=== PATIENT | female | born 1975 | race Caucasian/White ===

== ENCOUNTER 2016-06-15 09:48 | Emergency (ER) | payer OTHER ==
[2016-06-15 09:55] VITALS: BP 110/80; PULSE 93; TEMP 97.9; BMI 37.7
--- NOTE | 2016-06-15 11:35 | PDOC ---
History of Present Illness - General Chief Complaint: Pain Stated Complaint: LT ANKLE PAIN Time Seen by Provider: 06/15/16 10:44 History Source: Patient Exam Limitations: No Limitations - History of Present Illness Initial Comments: 06/15/16 11:31 40 yr female with c/o twisted left ankle and foot 2 days ago on uneven pavement. Pt has been apply ice every 2hrs. Pt took aleve for pain . no medical history or allergies. Occurred: reports: last week Severity: reports: mild Past History - Past Medical History Allergies/Adverse Reactions: Allergies Allergy/AdvReac Type Severity Reaction Status Date / Time Penicillins Allergy Severe Difficulty Verified 06/15/16 09:52 Breathing Home Medications: Ambulatory Orders Lisinopril [Prinivil] 25 mg PO DAILY #0 tablet 06/20/13 Metformin HCl [Glucophage -] 500 mg PO BID 30 Days 10/05/14 Sulfamethoxazole/Trimethoprim [Bactrim Ds Tablet] 1 each PO BID #13 tablet 09/10 Diabetes: Yes (NIDDM) HTN: Yes Hypercholesterolemia: Yes Suicide Attempt (Hx): No - Psycho/Social/Smoking Cessation Hx Anxiety: No Suicidal Ideation: No Smoking Status: No Smoking History: Never smoked Have you smoked in the past 12 months: No Number of Cigarettes Smoked Daily: 0 Information on smoking cessation initiated: No Hx Alcohol Use: No Drug/Substance Use Hx: No Substance Use Type: None *Physical Exam - Vital Signs Last Vital Signs Temp Pulse Resp BP Pulse Ox 97.9 F 93 H 18 110/80 100 06/15/16 09:53 06/15/16 09:53 06/15/16 09:53 06/15/16 09:53 06/15/16 09:53 - Physical Exam General Appearance: Yes: Nourished, Appropriately Dressed HEENT: positive: EOMI, ANIYAH, Normal ENT Inspection, TMs Normal, Pharynx Normal Neck: negative: Tender Respiratory/Chest: positive: Lungs Clear, Normal Breath Sounds Cardiovascular: positive: Regular Rhythm, Regular Rate Gastrointestinal/Abdominal: positive: Normal Bowel Sounds, Soft Lymphatic: negative: Adenopathy Musculoskeletal: positive: Normal Inspection Extremity: positive: Normal Capillary Refill, Normal Inspection, Normal Range of Motion, Swelling (left lateral foot ) Integumentary: positive: Normal Color, Dry, Warm Neurologic: positive: Fully Oriented, Alert, Normal Mood/Affect, Normal Response , Motor Strength 5/5 Procedures - Splinting Pre-Made Type: aircast ED Treatment Course - ADDITIONAL ORDERS Additional order review: Laboratory Results 06/15/16 10:00 Urine HCG, Qual Negative - RADIOLOGY Radiology Studies Ordered: Category Date Time Status ANKLE & FOOT-LEFT* [RAD] Stat Radiology 06/15/16 10:46 Completed Medical Decision Making - Medical Decision Making 06/15/16 11:33 cc: left ankle foot twisted will xray to r/o fracture nv intact strong pedal pulse 06/15/16 11:49 AIR CAST PLACED crutches given pt understands the dc plan all questions asked and answered before discharge *DC/Admit/Observation/Transfer Diagnosis at time of Disposition: Ankle sprain Qualifiers: Encounter type: initial encounter Involved ligament of ankle: unspecified ligament Laterality: left Qualified Code(s): S93.402A - Sprain of unspecified ligament of left ankle, initial encounter - Discharge Dispostion Disposition: HOME Condition at time of disposition: Good - Referrals Referrals: Juan Carlos Elaine MD [Primary Care Provider] - Jonathon Dwyer MD [Staff Physician] - - Patient Instructions Additional Instructions: use the air cast splint while awake for 7 days remove to bathe and sleep follow with the orthopedist if symptoms worsen or do not improve take Aleve or Advil as directed for pain no strenuous activity until symptoms improve
== END 2016-06-15 11:41 | disposition home or self-care (01) ==
LOC: JERFT 09:48
PROC: 2W3TX1Z Immobilization of Left Foot using Splint (ICD-10-PCS; principal; 2016-06-15)
DX: S93.402A Sprain of unspecified ligament of left ankle, initial encounter (principal); X58.XXXA Exposure to other specified factors, initial encounter; Y93.89 Activity, other specified; Y92.410 Unspecified street and highway as the place of occurrence of the external cause; Z79.84 Long term (current) use of oral hypoglycemic drugs; E11.9 Type 2 diabetes mellitus without complications; I10 Essential (primary) hypertension; E78.00 Pure hypercholesterolemia, unspecified
CPT/HCPCS: 29515; 73610-TC-LT; 73630-TC-LT; 84703; 99281-25

== ENCOUNTER 2017-08-19 22:02 | Inpatient (IN) | payer OTHER ==
--- NOTE | 2017-08-19 22:29 | PDOC ---
History of Present Illness - General Chief Complaint: Pain, Acute Stated Complaint: PAIN Time Seen by Provider: 08/19/17 22:21 - History of Present Illness Initial Comments: 08/19/17 22:35 The patient is a 41 year old female with a history of HTN, HLD, DM who presents for evaluation of pain with urination and abdominal pain. The patient reports a 4 day history of intermittent sharp suprapubic abdominal pain worse with urination and associated with orange colored urine. The patient reports persistent nausea, and multiple episodes of non-bilious, non-bloody vomiting prompting her presentation to the ED for further evaluation. She otherwise denies fevers, chills, SOB, chest pain, vaginal bleeding, vaginal discharge, or changes with bowel movements. Past History - Past Medical History Allergies/Adverse Reactions: Allergies Allergy/AdvReac Type Severity Reaction Status Date / Time Penicillins Allergy Severe Difficulty Verified 08/19/17 22:24 Breathing Home Medications: Ambulatory Orders Linagliptin/Metformin HCl [Jentadueto 2.5 mg-1000 mg Tab] 1 each PO DAILY Diabetes: Yes (NIDDM) HTN: Yes Hypercholesterolemia: Yes - Suicide/Smoking/Psychosocial Hx Smoking Status: No Smoking History: Never smoked Have you smoked in the past 12 months: No Number of Cigarettes Smoked Daily: 0 Information on smoking cessation initiated: No Hx Alcohol Use: No Drug/Substance Use Hx: No Substance Use Type: None Review of Systems - Review of Systems Comments:: 08/19/17 22:38 Constitutional: No fevers, chills, fatigue, malaise HEENT: No Rhinorrhea, nasal congestion, visual changes Cardiovascular: No chest pain, syncope, palpitations, lightheadedness Respiratory: No Cough, SOB, Hemoptysis, Gastrointestinal: Suprapubic abdominal pain, nausea, vomiting. No Constipation , Diarrhea, Melena Genitourinary: Dysuria, Hesitancy, Hematuria. No Frequency, Urgency, Flank pain Musculoskeletal: No Myalgia, arthralgia Skin: No rashes, itching, bruising, pallor Neurologic: No Headache, Dizziness, Numbness, Weakness, or Tingling Psychiatric: No Hallucinations. No SI or HI *Physical Exam - Vital Signs Last Vital Signs Temp Pulse Resp BP Pulse Ox 98.3 F 102 H 18 127/80 97 08/19/17 22:25 08/19/17 22:25 08/19/17 22:25 08/19/17 22:25 08/19/17 22:25 - Physical Exam Comments: 08/19/17 22:45 General Appearance: Nourished. No Apparent Distress HEENT: EOMI, ANIYAH. No Pharyngeal Erythema, Tonsillar Exudate, Tonsillar Erythema Neck: No Cervical Lymphadenopathy Respiratory/Chest: Lungs Clear, Normal Breath Sounds. No Crackles, Rales, Rhonchi, Wheezing Cardiovascular: Regular Rhythm, Regular Rate. No Murmur, Gallops, Rubs Gastrointestinal/Abdominal: Normal Bowel Sounds, Soft. Suprapubic Tenderness to Palpation on Exam. No Guarding, Rebound, Musculoskeletal: No CVA Tenderness Extremity: Normal Capillary Refill Integumentary: Normal Color, Dry, Warm Neurologic: Fully Oriented, Alert, Normal Mood/Affect, Normal Response, ED Treatment Course - LABORATORY CBC & Chemistry Diagram: 08/19/17 23:10 08/19/17 23:10 Medical Decision Making - Medical Decision Making 08/19/17 22:47 The patient is a 41 year old female with a history of HTN, HLD, DM who presents for evaluation of pain with urination and abdominal pain. Differential includes but is not limited to: UTI, Pyelonephritis, Gastroenteritis, Infectious , Metabolic Derangement. Given the patient's history and physical exam, we will obtain a cbc, cmp, ua, urine preg, urine culture to evaluate for possible etiologies. We will treat with iv fluids, zofran in the meantime and continue to monitor and reassess. 08/20/17 00:09 CBC demonstrates an elevated wbc to 12.4. CMP demonstrates elevated bilirubin to 3.2. UA demonstrates positive leuk esterase and wbc in the urine. The patient continues to have pain on exam. We will obtain a abdomen/pelvis CT to evaluate further for possible etiologies. 08/20/17 04:48 CT abdomen/pelvis demonstrates an acute appendicitis as preliminarily read by our coater carbon paper radiologist. We discussed the case with the patient's primary care provider Dr. Elaine who requested admission to the hospitalist. We will start the patient on levoquin in the meantime. The patient continues to remain clinically stable on exam. 08/20/17 06:06 We discussed the case with Dr. Morales who is aware of the case and has the patient scheduled for the OR. *DC/Admit/Observation/Transfer Diagnosis at time of Disposition: Appendicitis Qualifiers: Appendicitis type: acute appendicitis Acute appendicitis type: unspecified acute appendicitis type Qualified Code(s): K35.80 - Unspecified acute appendicitis - Discharge Dispostion Condition at time of disposition: Stable Decision to Admit order: Yes - Referrals Referrals: Juan Carlos Elaine MD [Primary Care Provider] - - Patient Instructions - Post Discharge Activity
[2017-08-19] MEDS ORDERED: ONDANSETRON 4 MG/2 ML VIAL IVPUSH ONE (22:33)
[2017-08-19] MEDS ORDERED: SODIUM CHLORIDE 1,000 ML IV STA (22:33)
[2017-08-19] MEDS ORDERED: ONDANSETRON 4 MG/2 ML VIAL ONE (22:41)
--- NOTE | 2017-08-19 23:11 | PDOC ---
Attending Attestation - Medical Decision Making 08/20/17 3:15am Call placed to Dr. Elaine's answering service, patient's PCP, awaiting call back. 3:47am Second call placed to Dr. Elaine answering service, patient's PCP, awaiting call back. 4:43am Third call placed to Dr. Elaine answering service, patient's PCP, case discussed with resident. <Brian Dinero - Last Filed: 08/20/17 04:43> - Resident Resident Name: JuanaQuintin - ED Attending Attestation I have performed the following: I have examined & evaluated the patient, The case was reviewed & discussed with the resident, I agree w/resident's findings & plan - HPI HPI: 08/20/17 00:30 Pt comes with lower abd pain and vomiting x 3 to 4 days. Pt has no fever and no chills. States that she has lost her appetite the last few days and she has been drinking water and broth. Pt has a hx of c-sections, but retaines her appendix. Pt also states that she went thru early menopause 10 yrs ago, and she may have cysts follicles on her ovaries, as she has a family hx of ovarian cysts. Pt ahs exqusite rebound and guarding in the lower abd. She has no flank pain and she complains of slight dysuria. - Physicial Exam PE: 08/20/17 00:32 Agree with resident exam. See my comments above. - Medical Decision Making 08/20/17 00:32 Labs normal, except for elevated WBC. Pt will require CT imaging of colon and appy as well as abd wall to r/o femoral hernia. Pt will also get a sono of her pelvis to r/o ovarian cysts. 08/20/17 03:43 Pt has an appendicits and will be admitted to [facility]D [facility] and gen surg consult will be requested. 08/20/17 06:44 Pt's PMD is out of town and she will be admitted to hospitalist <Eusebia Baltazar - Last Filed: 08/20/17 06:53> Attestations - Attestations 08/20/17 03:49 Documentation prepared by Brian Dinero, acting as medical manager for Eusebia Baltazar MD. <Brian Dinero - Last Filed: 08/20/17 04:43>
[2017-08-19 23:18] LABS: BASO % 0.4 % (0-2.0); EOS % 1.7 % (0-4.5); HEMATOCRIT 36.2 % (32.4-45.2); HEMOGLOBIN 11.9 GM/dL (10.7-15.3); LYMPH % 24.8 % (8-40); MCH 25.4 pg (25.7-33.7); MCHC 32.7 g/dl (32.0-36.0); MEAN CELL VOLUME 77.6 fl (80-96); MEAN PLT VOLUME 8.6 fl (7.5-11.1); MONO % 4.4 % (3.8-10.2); NEUT % 68.7 % (42.8-82.8); PLATELET COUNT 346 K/MM3 (134-434); RBC 4.67 M/mm3 (3.60-5.2); RDW 13.2 % (11.6-15.6); WHITE BLOOD COUNT 12.6 K/mm3 (4.0-10.0)
[2017-08-19 23:40] LABS: URINE APPEARANCE CLEAR; URINE BILIRUBIN NEGATIVE (<2.0 mg/dL); URINE COLOR AMBER; URINE GLUCOSE (UA) 3+ (NEGATIVE); URINE KETONE NEGATIVE (NEGATIVE); URINE NITRITE NEGATIVE (NEGATIVE); URINE UROBILINOGEN 4.0 E.U/dl mg/dL (0.2-1.0)
[2017-08-19 23:42] LABS: URINE LEUK ESTERASE 1+ (NEGATIVE); URINE PROTEIN 2+ (NEGATIVE)
[2017-08-19 23:44] LABS: EPI CELLS RARE /HPF (FEW); URINE BACTERIA RARE /hpf (NONE SEEN); URINE MUCUS RARE
[2017-08-19 23:54] LABS: ALBUMIN 3.6 g/dl (3.4-5.0); ANION GAP 10 (8-16); BLOOD UREA NITROGEN 16 mg/dL (7-18); CALCIUM 9.1 mg/dL (8.5-10.1); CHLORIDE 98 mmol/L (98-107); CO2 29 mmol/L (21-32); GLUCOSE,RANDOM 250 mg/dL (74-106); POTASSIUM 3.7 mmol/L (3.5-5.1); SODIUM 137 mmol/L (136-145)
[2017-08-19 23:56] LABS: CREATININE 0.7 mg/dL (0.55-1.02); SGOT/AST 32 U/L (15-37); SGPT/ALT 29 U/L (12-78)
[2017-08-19 23:57] LABS: ALK PHOS 140 U/L (45-117); BILIRUBIN,TOTAL 3.2 mg/dL (0.2-1.0); TOT PROT 7.8 g/dl (6.4-8.2)
[2017-08-20] MEDS ORDERED: BUPIVACAINE HCL/PF (5 MG/ML) 30 ML VIAL IJ ONE
[2017-08-20 05:53] LABS: INR 1.15 (0.82-1.09)
--- NOTE | 2017-08-20 05:56 | HP ---
CHIEF COMPLAINT: abdominal pain PCP: Dr Elaine HISTORY OF PRESENT ILLNESS: The patient is a 41 year old female with a history of HTN, DMII, premature ovarian syndrome who presents for evaluation of abdominal pain for 5 days. The patient reports a 5 day history of intermittent sharp suprapubic abdominal pain worse with urination and associated with orange colored urine. The pain progressively got worse. Now it is 7/10, constant, worse with movement, alleviated with lying flat. The patient reports persistent nausea, multiple episodes of non-bilious, non-bloody vomiting, no appetite She otherwise denies fevers, chills, SOB, chest pain, vaginal bleeding, vaginal discharge, or changes with bowel movements. Last menstrual period was about 7 years ago after she had her twins. ER course was notable for: (1)CT abdomen (2)vaginal US (3)WBC 12.6 PAST MEDICAL HISTORY: as above PAST SURGICAL HISTORY: Social History: Smoking:denies Alcohol:denies Drugs: denies Family History: Multiple family members with cancer, mother; neck tumor Allergies Penicillins Allergy (Severe, Verified 08/19/17 22:24) Difficulty Breathing HOME MEDICATIONS: Home Medications Medication Instructions Recorded Linagliptin/Metformin HCl 1 each PO DAILY 08/19/17 [Jentadueto 2.5 mg-1000 mg Tab] REVIEW OF SYSTEMS CONSTITUTIONAL: loss of appetite, Absent: fever, chills, diaphoresis, generalized weakness, malaise, weight change HEENT: Absent: rhinorrhea, nasal congestion, throat pain, throat swelling, difficulty swallowing, CARDIOVASCULAR: Absent: chest pain, syncope, palpitations, irregular heart rate, lightheadedness , peripheral edema RESPIRATORY: Absent: cough, shortness of breath, dyspnea with exertion, orthopnea, wheezing, stridor, hemoptysis GASTROINTESTINAL:abdominal pain, Absent: abdominal distension, nausea, vomiting, diarrhea, constipation, GENITOURINARY: Absent: dysuria, frequency, urgency, hesitancy, hematuria, flank pain, genital pain MUSCULOSKELETAL: Absent: myalgia, arthralgia, joint swelling, back pain, neck pain SKIN: Absent: rash, itching, pallor HEMATOLOGIC/IMMUNOLOGIC: Absent: easy bleeding, easy bruising, lymphadenopathy, frequent infections ENDOCRINE: Absent: unexplained weight gain, unexplained weight loss, heat intolerance NEUROLOGIC: Absent: headache, focal weakness or paresthesias, dizziness, unsteady gait, seizure PSYCHIATRIC: Absent: anxiety, depression PHYSICAL EXAMINATION Vital Signs - 24 hr 08/19/17 08/20/17 22:25 05:12 Temperature 98.3 F 98.4 F Pulse Rate 102 H Pulse Rate [ 79 Left Radial] Respiratory 18 Rate Blood Pressure 127/80 Blood Pressure 110/79 [Left Arm] O2 Sat by Pulse 97 96 Oximetry (%) GENERAL: Awake, alert, and fully oriented, in no acute distress. HEAD: Normal with no signs of trauma. EYES: Extraocular movements intact, sclera anicteric, conjunctiva clear. EARS, NOSE, THROAT: Oropharynx clear without exudates. Moist mucous membranes. NECK: Normal range of motion, supple without lymphadenopathy, JVD, or masses. LUNGS: Breath sounds equal, clear to auscultation bilaterally. No wheezes, and no crackles. HEART: Regular rate and rhythm, normal S1 and S2 without murmur, rub or gallop. ABDOMEN: Tender to palpation in RLQ, +rebound, not distended, hyperactive bowel sounds, +guarding, no masses. +Rovsing sign, + McBurney. MUSCULOSKELETAL: Normal range of motion at all joints. No bony deformities or tenderness. UPPER EXTREMITIES: No peripheral edema. LOWER EXTREMITIES: 2+ pulses, no peripheral edema. NEUROLOGICAL: No facial asymmetry, no slurred speech, gait not observed. PSYCHIATRIC: Cooperative. Good eye contact. Appropriate mood and affect. SKIN: Warm, dry, normal turgor, no rashes or lesions noted. Laboratory Results - last 24 hr 08/19/17 08/19/17 08/19/17 23:10 23:10 23:30 WBC 12.6 H D RBC 4.67 Hgb 11.9 Hct 36.2 MCV 77.6 L MCH 25.4 L MCHC 32.7 RDW 13.2 Plt Count 346 MPV 8.6 Neutrophils % 68.7 D Lymphocytes % 24.8 D Monocytes % 4.4 Eosinophils % 1.7 Basophils % 0.4 Nucleated RBC % 0 PT with INR INR PTT (Actin FS) Sodium 137 Potassium 3.7 Chloride 98 Carbon Dioxide 29 Anion Gap 10 BUN 16 Creatinine 0.7 Creat Clearance w eGFR > 60 Random Glucose 250 H Calcium 9.1 Total Bilirubin 3.2 H D AST 32 ALT 29 Alkaline Phosphatase 140 H Total Protein 7.8 Albumin 3.6 Urine Color Cecy Urine Appearance Clear Urine pH 5.0 Ur Specific [place] 1.022 Urine Protein 2+ H Urine Glucose (UA) 3+ H Urine Ketones Negative Urine Blood 1+ H Urine Nitrite Negative Urine Bilirubin Negative Urine Urobilinogen 4.0 e.u/dl H Ur Leukocyte Esterase 1+ H Urine WBC (Auto) 23 Urine RBC (Auto) 1 Ur Epithelial Cells Rare Urine Bacteria Rare Urine Mucus Rare Urine HCG, Qual 08/19/17 08/20/17 08/20/17 23:30 05:00 05:00 WBC RBC Hgb Hct MCV MCH MCHC RDW Plt Count MPV Neutrophils % Lymphocytes % Monocytes % Eosinophils % Basophils % Nucleated RBC % PT with INR 13.00 INR 1.15 H PTT (Actin FS) 29.5 Sodium Potassium Chloride Carbon Dioxide Anion Gap BUN Creatinine Creat Clearance w eGFR Random Glucose Calcium Total Bilirubin AST ALT Alkaline Phosphatase Total Protein Albumin Urine Color Urine Appearance Urine pH Ur Specific [place] Urine Protein Urine Glucose (UA) Urine Ketones Urine Blood Urine Nitrite Urine Bilirubin Urine Urobilinogen Ur Leukocyte Esterase Urine WBC (Auto) Urine RBC (Auto) Ur Epithelial Cells Urine Bacteria Urine Mucus Urine HCG, Qual Negative ASSESSMENT/PLAN: The patient is a 41 year old female with a history of HTN, DMII, premature ovarian syndrome who presents for evaluation of abdominal pain for 5 days. The patient reports a 5 day history of intermittent sharp suprapubic abdominal pain worse with urination for 5 days. Acute appendicitis: -the patient presented with severe abdominal pain, elevated WBC to 12.4, tachycardic to 102, found to have appendicitis on preliminary CT abdomen -coags, type and screen ordered in ER -Dr Morales-gen surgery will operate in the morning at 9 AM -Levaquin 500 mg IV given in ED -NS at 125 cc/hr -Tylenol 650 mg q6h Dysuria: UA with 3+ blood and proten, 1+ LE -Urine culture pending DMII: -ISS ACHS -BGM ACHS -HgA1c ordered HTN: -controlled -not on any home meds DVT PPX; -scds F/E/N: NS/no changes/NPO Disposition: med-surg Problem List - Problem (1) Diabetes Code(s): E11.9 - TYPE 2 DIABETES MELLITUS WITHOUT COMPLICATIONS (2) Hypertension Code(s): I10 - ESSENTIAL (PRIMARY) HYPERTENSION (3) Appendicitis Code(s): K37 - UNSPECIFIED APPENDICITIS Qualifiers: Appendicitis type: acute appendicitis Acute appendicitis type: unspecified acute appendicitis type Qualified Code(s): K35.80 - Unspecified acute appendicitis Visit type - Emergency Visit Emergency Visit: Yes ED Registration Date: 08/20/17 Care time: The patient presented to the Emergency Department on the above date and was hospitalized for further evaluation of their emergent condition. - New Patient This patient is new to me today: Yes Date on this admission: 08/20/17 - Critical Care Critical Care patient: No Hospitalist Screening - Colonoscopy Questionnaire Colonoscopy Questionnaire: Colonoscopy Questionnaire - Patient: 50 - 75 years old and never had a screening colonoscopy: No History of colon or rectal polyps, or CA: No History of IBD, Crohn's disease or UC: No History of abdominal radiation therapy as a child: No - Relative: 1 with colon or rectal CA, or polyps at age 60 or younger: No Colon or rectal CA diagnosed at age 45 or younger: No Multiple relatives with colon or rectal CA: No - Outcome: Screening Result: Negative Screen
--- NOTE | 2017-08-20 06:00 | PN ---
Teaching Attending Note Name of Resident: Karlee Centeno ATTENDING PHYSICIAN STATEMENT I saw and evaluated the patient. I reviewed the resident's note and discussed the case with the resident. I agree with the resident's findings and plan as documented. SUBJECTIVE: OBJECTIVE: ASSESSMENT AND PLAN: 41 y/o female without any significant PMH presented with lower quadrant pain, she was found to have acute appendicitis patient is scheduled for surgery start IV antibiotics IVF
[2017-08-20] MEDS ORDERED: ACETAMINOPHEN 325 MG TABLET (FP) PO PRN ×2 (06:30→12:46)
[2017-08-20] MEDS ORDERED: SODIUM CHLORIDE 1,000 ML IV SCH (06:45)
[2017-08-20] MEDS: INSULIN SLIDING SCALE (NOVOLOG) 1 VIAL SQ SCH ×4 (07:36→21:56)
[2017-08-20] MEDS ORDERED: INSULIN (NOVOLOG) ASPART 100 UNITS/ML 10ML VIAL ONE (07:50)
[2017-08-20] MEDS ORDERED: ACETAMINOPHEN 325 MG TABLET (FP) ONE (07:54)
[2017-08-20 08:36] LABS: PHOSPHOROUS 3.8 mg/dL (2.5-4.9)
[2017-08-20 09:10] VITALS: BMI 37.7
--- NOTE | 2017-08-20 09:46 | CONSULT ---
- Consultation REQUESTING PROVIDER: Juana PHAN CONSULT REQUEST: We have been asked to surgically evaluate this patient for ( specify). PCP:Jeanne Mclean HISTORY OF PRESENT ILLNESS: CTSP who is a 41 y/o female who presented to the ER w/nausea and RLQ abdominal pain; pain worse w/movement and less w/ lying still; pain is sharp and w/o radition from the RLQ and started ? 3-4 days ago hours ago; she has NOC e/f some dysuria; she denies FUR REPAIRER/GI c/o's; she has no appetite. PMHx: NIDDM PSHx: C-S Home Medications Medication Instructions Recorded Linagliptin/Metformin HCl 1 each PO DAILY 08/19/17 [Jentadueto 2.5 mg-1000 mg Tab] Allergies Allergy/AdvReac Type Severity Reaction Status Date / Time Penicillins Allergy Severe Difficulty Verified 08/19/17 22:24 Breathing PHYSICAL EXAM: GENERAL: Awake, alert, and fully oriented, in no acute distress. HEAD: Normal with no signs of trauma. EYES: sclera anicteric, conjunctiva clear. NECK: Normal ROM, supple without lymphadenopathy, JVD, or masses. ABDOMEN: Soft, tender RLQ w/ttp over McBurneys point, not distended, normoactive bowel sounds, no guarding, no rebound, no masses. No organomegaly. No hernias; healed C-S scar; Rovsing; psoas and obturator signs are present. MUSCULOSKELETAL: Normal ROM at all joints. No bony deformities or tenderness. No CVA tenderness. UPPER EXTREMITIES: 2+ pulses, warm, well-perfused. No cyanosis. Cap refill <2 seconds. No peripheral edema. LOWER EXTREMITIES: 2+ pulses, warm, well-perfused. No calf tenderness. No peripheral edema. NEUROLOGICAL: Normal speech, gait not observed. PSYCH: Cooperative. Good eye contact. Appropriate mood and affect. SKIN: Warm, dry, normal turgor, no rashes or lesions noted. Vital Signs Temperature 98.7 F 08/20/17 08:47 Pulse Rate 74 08/20/17 08:47 Respiratory Rate 20 08/20/17 08:47 Blood Pressure 116/69 08/20/17 08:47 O2 Sat by Pulse Oximetry (%) 97 08/20/17 09:13 Lab Results WBC 12.6 K/mm3 (4.0-10.0) H D 08/19/17 23:10 RBC 4.67 M/mm3 (3.60-5.2) 08/19/17 23:10 Hgb 11.9 GM/dL (10.7-15.3) 08/19/17 23:10 Hct 36.2 % (32.4-45.2) 08/19/17 23:10 MCV 77.6 fl (80-96) L 08/19/17 23:10 MCHC 32.7 g/dl (32.0-36.0) 08/19/17 23:10 RDW 13.2 % (11.6-15.6) 08/19/17 23:10 Plt Count 346 K/MM3 (134-434) 08/19/17 23:10 Sodium 137 mmol/L (136-145) 08/19/17 23:10 Potassium 3.7 mmol/L (3.5-5.1) 08/19/17 23:10 Chloride 98 mmol/L (98-107) 08/19/17 23:10 Carbon Dioxide 29 mmol/L (21-32) 08/19/17 23:10 Anion Gap 10 (8-16) 08/19/17 23:10 BUN 16 mg/dL (7-18) 08/19/17 23:10 Creatinine 0.7 mg/dL (0.55-1.02) 08/19/17 23:10 Random Glucose 250 mg/dL (74-106) H 08/19/17 23:10 Calcium 9.1 mg/dL (8.5-10.1) 08/19/17 23:10 Blood Type O POSITIVE 08/20/17 05:00 Antibody Screen Negative 08/20/17 05:00 INR 1.15 (0.82-1.09) H 08/20/17 05:00 CT a/p c/w acute appendicitis. IMP: acute appendicitis PLAN: laproscopic possible open appendectomy; r/b/t/a's d/w the patient and her mother and informed consent obtainec. Jian Morales MD FACS
[2017-08-20] MEDS ORDERED: ONDANSETRON 4 MG/2 ML VIAL IVPUSH PRN ×2 (10:06→12:39)
[2017-08-20] MEDS ORDERED: PROMETHAZINE HCL 25 MG/1 ML VIAL IVPUSH PRN (10:06)
[2017-08-20] MEDS ORDERED: ROCURONIUM BROMIDE 50 MG/5 ML VIAL ONE (10:10)
[2017-08-20] MEDS ORDERED: MIDAZOLAM HCL 2 MG/2 ML SINGLE DOSE VIAL ONE (10:10)
[2017-08-20] MEDS ORDERED: LIDOCAINE HCL/PF 2% SDV 5ML VIAL ONE (10:11)
[2017-08-20] MEDS ORDERED: LACTATED RINGERS SOLUTION 1,000 ML IV SCH (10:15)
[2017-08-20] MEDS ORDERED: DEXAMETHASONE SOD PHOSPHATE 4 MG/1 ML VIAL ONE (11:02)
[2017-08-20] MEDS ORDERED: BUPIVACAINE HCL/PF 0.25% (2.5MG/ML) 10 ML VIAL ONE (11:43)
[2017-08-20] MEDS ORDERED: GLYCOPYRROLATE 0.2 MG/1 ML VIAL ONE (11:51)
[2017-08-20] MEDS ORDERED: NEOSTIGMINE METHYLSULFATE 0.5 MG/ML - 10 ML MDV ONE (11:51)
[2017-08-20] MEDS ORDERED: KETOROLAC TROMETHAMINE 30 MG/1 ML VIAL ONE (11:52)
[2017-08-20] MEDS ORDERED: BUPIVACAINE HCL/PF 0.25% (2.5MG/ML) 10 ML VIAL IJ ONE (12:02)
--- NOTE | 2017-08-20 12:18 | OP ---
Operative Note - Note: Operative Date: 08/20/17 Pre-Operative Diagnosis: acute appendicitis Operation: lap appendectomy Findings: acute appendicitis Post-Operative Diagnosis: Same as Pre-op Surgeon: Jian Morales Anesthesiologist/SILK TRIMMER: Carlos Fenton Anesthesia: General Specimens Removed: appendix Estimated Blood Loss (mls): 20
[2017-08-20] MEDS ORDERED: oxyCODONE HCL 5 MG TABLET PO PRN (12:46)
[2017-08-20] MEDS: SODIUM CHLORIDE 1,000 ML IV SCH (13:08)
[2017-08-21] MEDS: SODIUM CHLORIDE 1,000 ML IV SCH (06:22)
[2017-08-21] MEDS: INSULIN SLIDING SCALE (NOVOLOG) 1 VIAL SQ SCH ×3 (06:22→17:15)
[2017-08-21 07:46] LABS: BASO % 0.3 % (0-2.0); HEMATOCRIT 34.1 % (32.4-45.2); HEMOGLOBIN 11.3 GM/dL (10.7-15.3); LYMPH % 39.3 % (8-40); MCH 25.8 pg (25.7-33.7); MCHC 33.1 g/dl (32.0-36.0); MEAN PLT VOLUME 8.3 fl (7.5-11.1); MONO % 5.2 % (3.8-10.2); NEUT % 53.2 % (42.8-82.8); PLATELET COUNT 370 K/MM3 (134-434); RBC 4.37 M/mm3 (3.60-5.2); RDW 13.3 % (11.6-15.6); WHITE BLOOD COUNT 9.8 K/mm3 (4.0-10.0)
[2017-08-21 08:15] LABS: CHLORIDE 106 mmol/L (98-107); POTASSIUM 3.8 mmol/L (3.5-5.1); SODIUM 141 mmol/L (136-145)
[2017-08-21 08:26] LABS: ALBUMIN 3.2 g/dl (3.4-5.0); ALK PHOS 116 U/L (45-117); ANION GAP 8 (8-16); BILIRUBIN,TOTAL 1.8 mg/dL (0.2-1.0); BLOOD UREA NITROGEN 7 mg/dL (7-18); CALCIUM 8.3 mg/dL (8.5-10.1); CO2 27 mmol/L (21-32); CREATININE 0.6 mg/dL (0.55-1.02); GLUCOSE,RANDOM 135 mg/dL (74-106); SGOT/AST 15 U/L (15-37); SGPT/ALT 25 U/L (12-78)
--- NOTE | 2017-08-21 08:30 | PN ---
Progress Note (short form) - Note Progress Note: Anesthesia Post op Pt seen and examined S:alert and awake O: Vital Signs Temperature 98.7 F 08/21/17 06:00 Pulse Rate 71 08/21/17 06:00 Respiratory Rate 14 08/21/17 06:00 Blood Pressure 108/67 08/21/17 06:00 O2 Sat by Pulse Oximetry (%) 95 08/20/17 21:00 CBC, BMP 08/21/17 07:00 08/21/17 07:00 A/P: Current Active Problems Appendicitis (Acute) Diabetes (Acute) Hypertension (Acute) s/p lap appy Doing well post op Continue current care Abdoul Mcleod MD
[2017-08-21 10:14] VITALS: PULSE 69; TEMP 99
--- NOTE | 2017-08-21 10:35 | PN ---
Progress Note (short form) - Note Progress Note: Attending Surgeon POD#1 No c/o; feels better; voided and tolerated clear liquids VSS AF abdo-soft; port site dressings c/d/i WBC-normal IMP; doing well PLAN: Advance diet and d/c to office f/u next week. Jian Morales MD FACS
[2017-08-21 15:44] VITALS: BP 127/73
[2017-08-21] MEDS ORDERED: INSULIN (NOVOLOG) ASPART 100 UNITS/ML 10ML VIAL ONE (17:25)
--- NOTE | 2017-08-22 13:55 | OP ---
DATE OF OPERATION: 08/20/2017 PREOPERATIVE DIAGNOSIS: Acute appendicitis. POSTOPERATIVE DIAGNOSIS: Acute appendicitis. PROCEDURE: Laparoscopic appendectomy. SURGEON: iJan Morales MD ANESTHESIA: General. OPERATIVE FINDINGS: Acute appendicitis. The rest of the findings were unremarkable. DESCRIPTION OF PROCEDURE: The patient was placed on the operating room in the supine position. After the induction of general anesthesia, a Eubanks catheter was placed, and the abdomen was present with ChloraPrep and draped in a sterile fashion. A time-out was taken and pneumoperitoneum established above the umbilicus using a Veress needle. Once 15 mmHg intra-abdominal pressure was achieved, a 5-mm port was placed above the umbilicus and a laparoscopy carried out, and the previously noted findings were observed. A suprapubic 12-mm port and a left lower quadrant 5-mm port were placed and then using blunt dissection, the base of the appendix was identified at the convergence of the tinea of the right colon, and the appendix was lying in a normal position in the right lower quadrant with some flimsy adhesions to the abdominal wall. The appendix was mobilized using blunt dissection and then the mesoappendix was serially divided using LigaSure device. The terminal ileum was identified throughout the procedure. The appendix was then divided using an Endo VLADISLAV stapling device with 3.5-mm giorgi. The appendix was placed in a specimen retrieval bag and brought up against the abdominal wall suprapubic port site. Hemostasis was checked for and noted to be good and then the appendix brought out through the suprapubic port and pneumoperitoneum evacuated and then all port sites were infiltrated with 0.5% Marcaine, and the defect at the suprapubic port was closed with a single fxdlet-cw-difdw 0 Vicryl suture. All skin incisions were closed with 4 -0 Vicryl in a subcuticular continuous fashion followed by Steri-Strips and Band- Aid dressings. The Eubanks catheter was removed at the completion of the procedure and the patient aroused from general anesthesia and transferred to the post anesthesia care unit in stable condition awake and alert. ESTIMATED BLOOD LOSS: 20 mL. REPLACEMENT: Crystalloid. DRAINS: None. SPECIMEN: Appendix to pathology. I, Jian Morales, was physically present in the operating room from the time the patient was placed on the operating room table until she was transferred to the post anesthesia care unit in [place]. MD MIGUEL Villalobos/[id number] MTDD
--- NOTE | 2017-08-23 17:00 | PATH ---
Surgical Pathology Report Patient Name: MONIQUE DE LA ROSA [facility]. Rec. #: [id number] /Age/Gender: 1975 (Age: 41) / F Account: [id number] Location: [address] [place] [address] Taken: 08/20/2017 Received: 08/22/2017 Reported: 08/23/2017 Physicians: MD Jeanne Bhatia M.D. Specimen(s) Received APPENDIX Clinical History Acute appendicitis Final Diagnosis APPENDIX, LAPAROSCOPIC APPENDECTOMY: ACUTE APPENDICITIS AND PERIAPPENDICITIS. Electronically Signed Monique Blum M.D. Gross Description Received in formalin, labeled "appendix," is a 7.5 cm. in length vermiform appendix with a stapled margin of resection and abundant attached fat. The serosa is negrete-mclean with attached exudate. Sectioning reveals a focally hemorrhagic lumen. The wall of the appendix averages 0.1 cm. in thickness. Sanitary Aide sections are submitted in 2 cassettes. /08/22/2017 saudi08/22/2017
== END 2017-08-21 18:00 | disposition home or self-care (01) | DRG 225 ==
LOC: JER 22:02 → JERBED 08-20 05:16 → J6S 08-20 08:23
PROVIDERS: ADMIT Internal Medicine; ATTEND Internal Medicine
PROC: 0DTJ4ZZ Resection of Appendix, Percutaneous Endoscopic Approach (ICD-10-PCS; principal; 2017-08-20 10:50)
DX: K35.80 Unspecified acute appendicitis (principal); I10 Essential (primary) hypertension; E11.9 Type 2 diabetes mellitus without complications; R00.0 Tachycardia, unspecified; Z68.37 Body mass index [BMI] 37.0-37.9, adult; E66.9 Obesity, unspecified
CPT/HCPCS: 36415; 74176-TC; 76830-TC; 80053; 81003; 81015; 82962; 83036; 83735; 84100; 84703; 85025; 85610; 85730; 86850; 86900; 86901; 87086; 88304-TC; 94760; 99285-25; J7030

== ENCOUNTER 2021-07-14 12:43 | Emergency (ER) | payer OTHER ==
[2021-07-14 12:54] VITALS: BP 141/82; PULSE 79; TEMP 98.2; BMI 36.0
[2021-07-14] MEDS ORDERED: ACETAMINOPHEN 500 MG TABLET (FP) ONE (15:03)
[2021-07-14] MEDS ORDERED: ACETAMINOPHEN 500 MG TABLET (FP) PO ONE (15:04)
[2021-07-14] MEDS ORDERED: KETOROLAC TROMETHAMINE 30 MG/1 ML VIAL IM ONE (16:28)
== END 2021-07-14 16:41 | disposition home or self-care (01) ==
LOC: JERFT 12:43
PROC: 0HBQXZZ Excision of Finger Nail, External Approach (ICD-10-PCS; principal; 2021-07-14)
PROC: 3E023GC Introduction of Other Therapeutic Substance into Muscle, Percutaneous Approach (ICD-10-PCS; 2021-07-14)
DX: S61.307A Unspecified open wound of left little finger with damage to nail, initial encounter (principal); Y99.8 Other external cause status
CPT/HCPCS: 99284-25

== ENCOUNTER 2021-07-16 15:45 | Emergency (ER) | payer OTHER ==
[2021-07-16 16:11] VITALS: BP 123/82; PULSE 71; TEMP 97.8; BMI 36.0
== END 2021-07-16 17:53 | disposition home or self-care (01) ==
LOC: JERFT 15:45
DX: Z48.00 Encounter for change or removal of nonsurgical wound dressing (principal)
CPT/HCPCS: 99281-25